=== PATIENT | female | born 1990 | race Caucasian/White ===

== ENCOUNTER 2018-07-22 05:25 | Emergency (ER) | payer SELFPAY ==
[2018-07-22] MEDS ORDERED: NS 1,000 ML IV ONE (05:44)
--- NOTE | 2018-07-22 05:47 | EDPHY ---
H & P Stated Complaint: lower abdominal pain, nausea - Personal History LMP (Females 10-55): Unknown Current Tetanus/Diphtheria Vaccine: Yes Current Tetanus Diphtheria and Acellular Pertussis (TDAP): Yes Tetanus Vaccine Date: < 10 YEARS - Medical/Surgical History Hx Asthma: No Hx Chronic Respiratory Disease: No Hx Diabetes: No Hx Cardiac Disease: No Hx Renal Disease: No Hx Cirrhosis: No Hx Alcoholism: No Hx HIV/AIDS: No Hx Splenectomy or Spleen Trauma: No Other PMH: UTI 1 mo. ago, rx w/ antibiotic - Social History Smoking Status: Never smoked Time Seen by Provider: 07/22/18 05:30 HPI/ROS: Chief Complaint: Abdominal pain HPI: 27-year-old G 4 P to is presenting with lower abdominal pain began last night. It has getting progressively worse. Is described as low in her abdomen and bilateral. Is not radiating. She has had some nausea vomiting. No diarrhea or constipation. No vaginal bleeding or discharge. Last normal menstrual period was the 28th of last month. No urinary urgency or frequency. She denies similar symptoms in the past. The patient is Omani speaking only. Translation is obtained via a [employer] translation service. No back pain. Pain is an 8/10. There are no aggravating or alleviating factors. ROS: 10 systems were reviewed and were negative except those elements noted in the HPI. PMH: Denies Social History: No smoking, no alcohol, no recreational drug use Family History: non-contributory Physical Exam: Gen: Awake, Alert, No Distress HEENT: Nose: no rhinorrhea Eyes: PERRLA, EOMI Mouth: Moist mucosa Neck: Supple, no JVD Chest: nontender, lungs clear to auscultation Heart: S1, S2 normal, no murmur Abd: Soft, moderate bilateral lower pelvic tenderness, no guarding Back: no CVA tenderness, no midline tenderness Ext: no edema, non-tender Skin: no rash Neuro: CN II-XII intact, Sensation grossly intact, Strength 5/5 in bilateral upper and lower extremities (Sunil Daly) Constitutional: Initial Vital Signs Temperature (C) 36.7 C 07/22/18 05:28 Heart Rate 87 07/22/18 05:28 Respiratory Rate 18 07/22/18 05:28 Blood Pressure 110/74 07/22/18 05:28 O2 Sat (%) 97 07/22/18 05:28 O2 Delivery Mode Room Air Allergies/Adverse Reactions: No Known Allergies Allergy (Verified 07/22/18 05:27) Home Medications: Medication Instructions Recorded NK [No Known Home Meds] 07/22/18 Medical Decision Making - Diagnostics Imaging Results: Imaging Impressions Pelvic/Renal Ultrasound 07/22/18 06:50 Impression: 1. Malpositioned IUD upside down in the cervix region with wings extending into the cervical myometrium. Recommend gynecologic consult. 2. No adnexal masses or ovarian torsion. Findings and recommendations discussed with Emergency Department physician, Sunil Daly MD, at 0823 hours, 07/22/2018. Final report concurs with initial preliminary interpretation. ED Course/Re-evaluation: Urinalysis is contaminated from a dirty specimen. I am awaiting the clean specimen results. Patient is not . Does not have a white count. Does not have any evidence of a surgical abdominal process. Will obtain at pelvic ultrasound to evaluate for ovarian cyst. Patient signed out to Dr. Terry pending results of the studies. (Sunil Daly) I took over care of this patient at 7:00 a.m.. This patient presents with left adnexal pain. We are awaiting the results of a urinalysis and a pelvic ultrasound the patient is not . Pelvic ultrasound: The patient's IUD is upside down and appears to be imbedded in the cervix. Likely it has been in for some time. Pelvic ultrasound otherwise unremarkable. No evidence of torsion or other pathology. Results were discussed with staff radiologist Dr. Joe Denson. 9:00 a.m., the patient was re-evaluated. She is resting comfortably at this time. Her vital signs have remained normal. She has been afebrile. By aws developer, I discussed the results of her ultrasound and her urinalysis. She tells me that the IUD is been in place for at least a year. I explained to her that the IUD was malpositioned in her cervix and needed to be removed. I discussed doing that here. I do not feel that the IUD is responsible for her pain. She does not want the IUD removed at this time in the emergency department. Plan will be to have her follow up with her OBGYN or Family Practice physician through [facility] either tomorrow or Thursday for re-evaluation and removal of this IUD. She is also aware that the results of her GC and chlamydia tests are pending. I feel that PID or STI are unlikely. She is feeling more comfortable now. She still complains of some mild left-sided lower abdominal discomfort. Repeat abdominal exam she is soft with mild tenderness on palpation over the left adnexal area. No tenderness on palpation at McBurney's point. She does feel comfortable going home. Return to emergency department precautions were thoroughly reviewed with her. She understands for follow-up and the need to have her IUD removed expediently. All of her questions were answered. She was discharged from the emergency department in good condition with her and daughter. (Gretta Terry) - Data Points Laboratory Results: Laboratory Results 07/22/18 06:08 07/22/18 06:08 07/22/18 07/22/18 07/22/18 08:20 06:08 06:08 WBC RBC Hgb Hct MCV MCH MCHC RDW Plt Count MPV Neut % (Auto) Lymph % (Auto) [place] % (Auto) Eos % (Auto) Baso % (Auto) Nucleat RBC Rel Count Absolute Neuts (auto) Absolute Lymphs (auto) Absolute Monos (auto) Absolute Eos (auto) Absolute Basos (auto) Absolute Nucleated RBC Immature Gran % Immature Gran # Sodium 141 mEq/L mEq/L (135-145) Potassium 4.3 mEq/L mEq/L (3.3-5.0) Chloride 108 mEq/L mEq/L (97-110) Carbon Dioxide 21 mEq/l L mEq/l (22-31) Anion Gap 12 mEq/L mEq/L (8-16) BUN 11 mg/dL mg/dL (7-23) Creatinine 0.6 mg/dL mg/dL (0.6-1.0) Estimated GFR > 60 Glucose 111 mg/dL H mg/dL (70-100) Calcium 8.8 mg/dL mg/dL (8.5-10.4) Total Bilirubin 0.2 mg/dL mg/dL (0.1-1.4) AST 26 IU/L IU/L (14-46) ALT 45 IU/L IU/L (9-52) Alkaline Phosphatase 53 IU/L IU/L (38-126) Total Protein 7.1 g/dL g/dL (6.3-8.2) Albumin 4.1 g/dL g/dL (3.5-5.0) Beta HCG, Qual NEGATIVE Urine Color PALE YELLOW Urine Appearance CLEAR Urine pH 5.0 (5.0-7.5) Ur Specific [place] 1.009 (1.002-1.030) Urine Protein NEGATIVE (NEGATIVE) Urine Ketones NEGATIVE (NEGATIVE) Urine Blood NEGATIVE (NEGATIVE) Urine Nitrate NEGATIVE (NEGATIVE) Urine Bilirubin NEGATIVE (NEGATIVE) Urine Urobilinogen NEGATIVE EU EU (0.2-1.0) Ur Leukocyte Esterase NEGATIVE (NEGATIVE) Urine RBC NONE SEEN /hpf /hpf (0-3) Urine WBC 0-1 /hpf /hpf (0-3) Ur Epithelial Cells TRACE /lpf /lpf (NONE-1+) Urine Bacteria Urine Mucus TRACE /lpf /lpf (NONE-1+) Urine Glucose NEGATIVE (NEGATIVE) C.trachomatis RNA (TMA) N.gonorrhoeae RNA (TMA) 07/22/18 07/22/18 07/22/18 06:08 05:25 05:25 WBC 7.56 10^3/uL 10^3/uL (3.80-9.50) RBC 4.37 10^6/uL 10^6/uL (4.18-5.33) Hgb 12.4 g/dL L g/dL (12.6-16.3) Hct 36.7 % L % (38.0-47.0) MCV 84.0 fL fL (81.5-99.8) MCH 28.4 pg pg (27.9-34.1) MCHC 33.8 g/dL g/dL (32.4-36.7) RDW 12.8 % % (11.5-15.2) Plt Count 265 10^3/uL 10^3/uL (150-400) MPV 10.0 fL fL (8.7-11.7) Neut % (Auto) 50.1 % % (39.3-74.2) Lymph % (Auto) 40.1 % % (15.0-45.0) [place] % (Auto) 7.3 % % (4.5-13.0) Eos % (Auto) 1.7 % % (0.6-7.6) Baso % (Auto) 0.7 % % (0.3-1.7) Nucleat RBC Rel Count 0.0 % % (0.0-0.2) Absolute Neuts (auto) 3.79 10^3/uL 10^3/uL (1.70-6.50) Absolute Lymphs (auto) 3.03 10^3/uL H 10^3/uL (1.00-3.00) Absolute Monos (auto) 0.55 10^3/uL 10^3/uL (0.30-0.80) Absolute Eos (auto) 0.13 10^3/uL 10^3/uL (0.03-0.40) Absolute Basos (auto) 0.05 10^3/uL 10^3/uL (0.02-0.10) Absolute Nucleated RBC 0.00 10^3/uL 10^3/uL (0-0.01) Immature Gran % 0.1 % % (0.0-1.1) Immature Gran # 0.01 10^3/uL 10^3/uL (0.00-0.10) Sodium Potassium Chloride Carbon Dioxide Anion Gap BUN Creatinine Estimated GFR Glucose Calcium Total Bilirubin AST ALT Alkaline Phosphatase Total Protein Albumin Beta HCG, Qual Urine Color YELLOW Urine Appearance TURBID Urine pH 5.0 (5.0-7.5) Ur Specific [place] 1.024 (1.002-1.030) Urine Protein NEGATIVE (NEGATIVE) Urine Ketones NEGATIVE (NEGATIVE) Urine Blood 1+ H (NEGATIVE) Urine Nitrate NEGATIVE (NEGATIVE) Urine Bilirubin NEGATIVE (NEGATIVE) Urine Urobilinogen NEGATIVE EU EU (0.2-1.0) Ur Leukocyte Esterase 3+ H (NEGATIVE) Urine RBC 10-15 /hpf H /hpf (0-3) Urine WBC 25-50 /hpf H /hpf (0-3) Ur Epithelial Cells 4+ /lpf H /lpf (NONE-1+) Urine Bacteria TRACE /hpf H /hpf (NONE SEEN) Urine Mucus TRACE /lpf /lpf (NONE-1+) Urine Glucose NEGATIVE (NEGATIVE) C.trachomatis RNA (TMA) Pending N.gonorrhoeae RNA (TMA) Pending Medications Given: Discontinued Medications Sodium Chloride (Ns) 1,000 mls @ 0 mls/hr IV ONCE ONE; Wide Open PRN Reason: Protocol Stop: 07/22/18 05:45 Last Admin: 07/22/18 06:06 Dose: 1,000 mls Ketorolac Tromethamine (Toradol) 15 mg IVP EDNOW ONE Stop: 07/22/18 06:51 Last Admin: 07/22/18 06:54 Dose: 15 mg Morphine Sulfate (Morphine) 4 mg IVP ONCE ONE Stop: 07/22/18 05:45 Last Admin: 07/22/18 06:08 Dose: 4 mg Departure - Departure Disposition: Home, Routine, Self-Care Clinical Impression: Lower abdominal pain Condition: Good Instructions: Abdominal Pain (ED) Additional Instructions: Read and follow provided instructions. Follow-up with your primary care physician or OBGYN at [facility] tomorrow or on Thursday for re-evaluation and removal of you're IUD as discussed. Ibuprofen dosin mg every 6 hours with meals for the next 3 days only. Take only as needed for pain. Return to the emergency department for worsening pain, vomiting, bleeding, fever or other serious concerns. Referrals: LEILA JACKMAN,. [Clinic] - As per Instructions
[2018-07-22 06:18] LABS: PLATELET COUNT 265 10^3/uL (150-400)
[2018-07-22] MEDS ORDERED: KETOROLAC 15 MG/1 ML SDV IVP ONE (06:50)
[2018-07-22 08:42] VITALS: BP 124/73
[2018-07-22 12:02] LABS: GC AMPLIFICATION GENPROBE NEGATIVE (NEGATIVE)
== END 2018-07-22 09:30 | disposition home or self-care (01) ==
DX: R10.30 Lower abdominal pain, unspecified (principal); R11.0 Nausea
CPT/HCPCS: 96374; J1885; J2270

== ENCOUNTER 2019-03-04 11:24 | Observation (INO) | payer MEDICAID, OTHER ==
[2019-03-04] MEDS ORDERED: ACETAMINOPHEN 500 MG TAB PO SCH (14:00)
--- NOTE | 2019-03-04 15:45 | GHP ---
[f rep st] HISTORY AND PHYSICAL DATE OF ADMISSION: 03/04/2019 ADMITTING DIAGNOSIS: 1. Intrauterine at 30 weeks and 2 days. 2. Lower abdominopelvic pain. HISTORY OF PRESENT ILLNESS: Patient is a Fijian-speaking only 28-year-old G5, P2-0-2-1 at 30 weeks and 2 days with an estimated due date of 05/11/2019, by last menstrual period 08/04/2018, and confirmed by ultrasound at 5 weeks and 6 days. A publications sales representative was used. Patient presents to Labor and Delivery with acute onset of lower abdominopelvic pain that started this morning after the patient used the bathroom. She had a normal bowel movement. She describes the pain in her lower abdomen near her bladder and off to the left and right side. The pain is localized, with no radiation. The patient denies any dysuria , urinary frequency or hematuria. She denies any fevers, chills, nausea, or vomiting. She states good movement is noted. Denies any leakage of fluid , vaginal bleeding, or any contractions at this time. The patient was treated for a urinary tract infection this in December and had a negative test-of -cure January 26, 2019. The patient denies a history of kidney stones or kidney infection in the past. The patient has her care at [facility]. 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 The patient did have a level 2 ultrasound done as well as a echo in this and all was normal. The patient had an IUD that was difficult to remove and both arms remain in her uterus. At the time it was supposed to be removed hysteroscopically, the patient was found to be . PHYSICAL EXAM: VITAL SIGNS: On admission, vital signs are stable. Patient is afebrile at 36.4, heart rate 1132, respirations 16, blood pressure initially was 131/69 and then 122/62, 125/68. GENERAL: The patient is a well-nourished, well-developed, Fijian-speaking only female. Alert and oriented x3. No apparent distress. SKIN: Warm, dry without rash. NEURO: Grossly intact. LUNGS: Clear to auscultation bilaterally. CARDIOVASCULAR: Regular rate and rhythm. ABDOMEN: Gravid, soft, nontender. There is some tenderness down near the suprapubic area. PELVIC: Exam is deferred. EXTREMITIES: Normal to inspection without calf tenderness or edema. heart tones are Category 1 strip with baseline 140s, positive accels, no decelerations, and moderate variability. On toco, there is some uterine irritability, but no contractions. LABORATORY: UA showed trace ketones, 3+ leukocyte esterase, 3 to 5 WBCs, as well as trace bacteria. ASSESSMENT/PLAN: Patient is a 28-year-old 5, para 2-0-2-1 at 30 weeks and 2 days who presents with lower abdominopelvic pain. 1. The patient was admitted to Labor and Delivery for observation. 2. Urinalysis reveals a urinary tract infection at this time; will send urine for culture and call patient with results. Rx given for Macrobid with instructions. 3. Also suspect round ligament pain and recommend patient use a baby belt/ hugger to help. 4. Discussed hydration and recommend Increasing p.o. fluids, 3 to 5 L of water per day now in the 3rd trimester. 5. Patient is to keep scheduled visit 03/08/19 with [facility]. 6. Patient is being discharged home in stable condition. /[id number]/MODL MTDD
== END 2019-03-04 16:28 | disposition home or self-care (01) ==
LOC: FLD 11:24
PROVIDERS: ADMIT Obstetrics & Gynecology; ATTEND Obstetrics & Gynecology
DX: O23.43 Unspecified infection of urinary tract in pregnancy, third trimester (principal); O09.293 Supervision of pregnancy with other poor reproductive or obstetric history, third trimester; B95.7 Other staphylococcus as the cause of diseases classified elsewhere; Z87.59 Personal history of other complications of pregnancy, childbirth and the puerperium; Z3A.30 30 weeks gestation of pregnancy; Z87.440 Personal history of urinary (tract) infections
CPT/HCPCS: 59025; G0378